=== PATIENT | male | born 1945 | race Two or more races ===

== ENCOUNTER 2021-04-20 18:57 | Observation (INO) | payer OTHER ==
[~2021-04-20] VITALS: Ht 182.9 cm; Wt 130.9 kg
[2021-04-20] MEDS ORDERED: ATROPINE SULF 1 MG/10ml SYR IV ONE (19:15)
[2021-04-20 19:50] LABS: Basophils # (auto) 0.1 10 ^3/uL (0-0.2); Basophils % (auto) 2.4 % (0.0-2.0); Eosinophils # (auto) 0.3 10 ^3/uL (0-0.8); Eosinophils % (auto) 7.8 % (0.0-7.0); Hematocrit 40.9 % (41.0-53.0); Lymphocytes # (auto) 0.9 10 ^3/uL (0.4-5.4); Lymphocytes % (auto) 24.1 % (10.0-50.0); Mean Corpuscular Hemoglobin 28.4 pg (28.0-32.0); Mean Corpuscular Hgb Conc. 31.8 g/dL (32.0-36.0); Mean Corpuscular Volume 89.2 fL (80.0-100.0); Monocytes # (auto) 0.5 10 ^3/uL (0-1.3); Monocytes % (auto) 13.9 % (0.0-12.0); Neutrophils % (auto) 51.8 % (37.0-80.0); Nucleated Red Blood Cells % 0.1 %; Red Blood Cells 4.58 10^6/uL (4.5-5.90); Red Cell Distribution Width 17.2 % (11.8-14.3); White Blood Cell 3.8 10^3/uL (4.4-10.8)
[2021-04-20 20:05] LABS: Alanine Aminotransferase 22 U/L (16-61); Albumin 3.2 g/dL (3.4-5.0); Anion Gap 5 (5-15); Aspartate Aminotransferase 15 U/L (15-37); BUN/Creatinine Ratio 24.9; Blood Urea Nitrogen 50 mg/dL (7-18); Calcium 10.3 mg/dL (8.5-10.1); Carbon Dioxide 30 mmol/L (21-32); Chloride 106 mmol/L (98-107); GFR African American 42 mL/min; GFR Non-African American 34 mL/min; Glucose 103 mg/dL (74-106); Lipase 139 U/L (73-393); Potassium 4.8 mmol/L (3.5-5.1); Sodium 141 mmol/L (136-145)
[2021-04-20] MEDS ORDERED: ATROPINE SULF 0.5 MG/5ML SYR ONE (20:07)
[2021-04-20 20:10] LABS: INR 1.07 (0.9-1.15); Partial Thromboplastin Time 24.1 sec (23.6-33.0)
[2021-04-20 20:14] LABS: Alkaline Phosphatase 51 U/L (45-117); Bilirubin, Total 0.4 mg/dL (0.2-1.0); Total Protein 7.7 g/dL (6.4-8.2)
[2021-04-20] MEDS ORDERED: MORPHINE SULFATE INJECTION 2 MG/ML SYRG IV PRN (23:30)
[2021-04-20] MEDS ORDERED: NITROGLYCERIN 0.4 MG SL TAB SL PRN (23:30)
[2021-04-20] MEDS ORDERED: ONDANSETRON HCL 4 MG/2 ML VIAL IV PRN (23:45)
[2021-04-20] MEDS ORDERED: ALBUTEROL SULF 2.5 MG/0.5ML(0.5%) NEB SOLN NEB PRN (23:45)
[2021-04-20] MEDS ORDERED: SOD CHL 0.45% 1,000 ML IV ONE (23:45)
[2021-04-20] MEDS ORDERED: IPRATROPIUM BROM 0.5 MG/2.5ML INH SOL NEB PRN (23:45)
[2021-04-21] VITALS (7 sets, daily range): BP systolic 105–131; BP diastolic 60–71
[2021-04-21] MEDS ORDERED: ATROPINE SULF 1 MG/10ml SYR IV ONE ×2 (02:30→04:00)
[2021-04-21] MEDS ORDERED: ATROPINE SULFATE 1 MG/1 ML VIAL ONE ×2 (02:34→03:51)
[2021-04-21] MEDS ORDERED: DOPamine 1600MCG/ML D5W 250 ML IV ONE (04:58)
[2021-04-21] MEDS ORDERED: DOPamine 1600MCG/ML D5W 250 ML IV SCH (05:00)
[2021-04-21 06:41] LABS: Potassium 4.8 mmol/L (3.5-5.1)
[2021-04-21 06:43] LABS: Basophils # (auto) 0.1 10 ^3/uL (0-0.2); Basophils % (auto) 1.4 % (0.0-2.0); Eosinophils # (auto) 0.3 10 ^3/uL (0-0.8); Eosinophils % (auto) 6.7 % (0.0-7.0); Hematocrit 43.7 % (41.0-53.0); Hemoglobin 14.3 g/dL (13.5-17.5); Lymphocytes # (auto) 0.7 10 ^3/uL (0.4-5.4); Lymphocytes % (auto) 16.7 % (10.0-50.0); Mean Corpuscular Hemoglobin 29.4 pg (28.0-32.0); Mean Corpuscular Hgb Conc. 32.8 g/dL (32.0-36.0); Mean Corpuscular Volume 89.7 fL (80.0-100.0); Monocytes # (auto) 0.6 10 ^3/uL (0-1.3); Monocytes % (auto) 13.2 % (0.0-12.0); Neutrophils # (auto) 2.6 10 ^3/uL (1.6-8.6); Red Blood Cells 4.87 10^6/uL (4.5-5.90); Red Cell Distribution Width 17.8 % (11.8-14.3); White Blood Cell 4.2 10^3/uL (4.4-10.8)
[2021-04-21 06:48] LABS: Albumin 3.3 g/dL (3.4-5.0); BUN/Creatinine Ratio 25.4; Calcium 10.3 mg/dL (8.5-10.1)
[2021-04-21] MEDS: FUROSEMIDE 40 MG/4 ML VIAL IV SCH ×2 (08:08)
[2021-04-21] MEDS ORDERED: VANCOMYCIN 1GM/250ML 250 ML IV ONE ×3 (08:56→17:00)
[2021-04-21] MEDS ORDERED: VANCOMYCIN HCL 1000 MG VL ONE (10:54)
[2021-04-21] MEDS ORDERED: fentaNYL CITRATE 100 MCG/2 ML VL ONE (10:54)
[2021-04-21] MEDS ORDERED: MIDAZOLAM HCL 2MG/2ML 2ml VIAL (1mg/ml) ONE (10:55)
[2021-04-21] MEDS ORDERED: diphenhdrAMINE HCL 50 MG/1 ML VL ONE (11:18)
[2021-04-21] MEDS ORDERED: ACETAMINOPHEN 325 MG TAB PO PRN (12:30)
[2021-04-21] MEDS ORDERED: NITROGLYCERIN 0.4 MG SL TAB SL PRN (12:30)
[2021-04-21] MEDS ORDERED: levoFLOXacin 500MG 100 ML IV ONE (12:30)
[2021-04-21] MEDS ORDERED: MORPHINE SULFATE INJECTION 2 MG/ML SYRG IV PRN (12:30)
[2021-04-21] MEDS ORDERED: HYDROcodone-ACET 5/325MG TAB PO PRN (12:30)
[2021-04-21] MEDS ORDERED: UMEC1AER IN (14:33)
[2021-04-21] MEDS ORDERED: BUDE1AER5 IN (14:33)
[2021-04-21] MEDS ORDERED: VANCOMYCIN PER PHARMACY 0 MG IV SCH (16:15)
[2021-04-21] MEDS ORDERED: POTA1TAB61 PO (19:03)
[2021-04-21] MEDS ORDERED: FURO1TAB31 PO (19:03)
[2021-04-21] MEDS ORDERED: MIDO10TA10 PO (19:03)
[2021-04-21] MEDS ORDERED: ASPI-543 PO (19:03)
[2021-04-22 05:00] VITALS: BP 132/60
[2021-04-22 06:57] LABS: Hematocrit 38.4 % (41.0-53.0); Hemoglobin 12.4 g/dL (13.5-17.5); Mean Corpuscular Hemoglobin 29.1 pg (28.0-32.0); Mean Corpuscular Hgb Conc. 32.3 g/dL (32.0-36.0); Mean Corpuscular Volume 90.1 fL (80.0-100.0); Red Blood Cells 4.26 10^6/uL (4.5-5.90); Red Cell Distribution Width 17.3 % (11.8-14.3); White Blood Cell 2.6 10^3/uL (4.4-10.8)
[2021-04-22 07:00] LABS: Basophils % (manual) 0 (0.0-2.0); Blast Cells 0; Metamyelocytes % 0; Myelocytes % 0; Promyelocytes % 0; Reactive Lymphocytes 0
[2021-04-22 07:08] LABS: Calcium 9.6 mg/dL (8.5-10.1); Potassium 4.2 mmol/L (3.5-5.1)
[2021-04-22 07:10] LABS: BUN/Creatinine Ratio 26.1
[2021-04-22 07:35] VITALS: BP 118/61
[2021-04-22 09:00] VITALS: BP 118/61
[2021-04-22 09:35] LABS: Band Neutrophils % (manual) 9; Eosinophils % (manual) 12 (0-7); Lymphocytes % (manual) 14 (10.0-50.0); Monocytes % (manual) 15 (0-12)
[2021-04-22] MEDS ORDERED: VANCOMYCIN 750mg/250ml 250 ML IV ONE (11:00)
[2021-04-23] MEDS ORDERED: levoFLOXacin 750MG 150 ML IV SCH (10:00)
== END 2021-04-22 15:00 | disposition home or self-care (01) ==
LOC: EDBD 18:57 → ER 19:06 → TELE 23:25 → TELE-WESTW 04-21 15:59
PROVIDERS: ADMIT Internal Medicine; ATTEND Internal Medicine
DX: I44.2 Atrioventricular block, complete (principal); Z20.822 Contact with and (suspected) exposure to COVID-19; R94.4 Abnormal results of kidney function studies; I11.0 Hypertensive heart disease with heart failure; I50.9 Heart failure, unspecified; E11.9 Type 2 diabetes mellitus without complications; E66.01 Morbid (severe) obesity due to excess calories; Z88.0 Allergy status to penicillin; Z87.01 Personal history of pneumonia (recurrent); Z95.0 Presence of cardiac pacemaker; Z79.899 Other long term (current) drug therapy
CPT/HCPCS: 33208; 36415; 71045; 80048; 80053; 80202; 83690; 83880; 84484; 85007; 85025; 85027; 85610; 85730; 87426; 93005; 93306; 96361; 96365; 96366; 96367; 96368; 96375; 96376; 99285; C1785; C1892; C1898; G0378; J0461; J1200; J1265; J1940; J1956; J2250; J3010; J3370; J7030; U0003; 99152; 99153